=== PATIENT | male | born 1960 | race African-American/Black ===

== ENCOUNTER 2017-10-31 09:48 | Inpatient (IN) | payer BC ==
[~2017-10-31] VITALS: Ht 188 cm; Wt 129.3 kg
[2017-10-31 09:51] VITALS: BP 198/118
--- NOTE | 2017-10-31 09:58 | NUR ---
PATIENT TO BED 10 AT THIS TIME.
--- NOTE | 2017-10-31 10:00 | NUR ---
57/M BIB C/O COUGH & SOB X1WK.DENIES N/V/D AT THIS TIME; SKIN IS PINK/WARM/DRY; AAOX4 WITH EVEN AND STEADY GAIT; LUNGS CLEAR BL; PATIENT STATES PAIN OF 0/10 AT THIS TIME; PATIENT POSITIONED FOR COMFORT; HOB ELEVATED; BEDRAILS UP X2; BED DOWN. KATHERINE BARRERA MADE AWARE OF PT STATUS. Addendum: [facility]17 [facility] at this [facility].
--- NOTE | 2017-10-31 10:06 | NUR ---
Patient being evaluated by DR BARRETT at bedside.
[2017-10-31] MEDS ORDERED: DEXAMETHASONE 10 MG/ML VIAL IVP ONE (10:10)
[2017-10-31] MEDS ORDERED: IPRATROPIUM 0.02% 0.5 MG/2.5 ML NEBU INH ONE (10:10)
[2017-10-31] MEDS ORDERED: ALBUTEROL 0.083% 2.5 MG/3 ML NEBU INH ONE (10:10)
[2017-10-31] MEDS ORDERED: cloNIDine 0.1 MG TAB PO ONE (10:10)
[2017-10-31 10:36] LABS: BASOPHILS # (AUTO) 0.1 K/uL (0.00-0.22); BASOPHILS % (AUTO) 4.1 % (0.0-2.0); EOSINOPHILS # (AUTO) 0.1 K/uL (0-0.4); EOSINOPHILS % (AUTO) 2.3 % (0.0-4.0); HEMATOCRIT 44.6 % (36-52); HEMOGLOBIN 14.4 g/dL (12.0-18.0); LYMPHOCYTES # (AUTO) 1.6 K/uL (2.0-11.5); LYMPHOCYTES % (AUTO) 45.9 % (20.5-51.1); MEAN CORPUSCULAR HEMOGLOBIN 26 pg (27-31); MEAN CORPUSCULAR HGB CONC 32 g/dL (33-37); MEAN CORPUSCULAR VOLUME 81 fL (80-94); MONOCYTES # (AUTO) 0.5 K/uL (0.8-1.0); MONOCYTES % (AUTO) 13.2 % (1.7-9.3); NEUTROPHILS # (AUTO) 1.2 K/uL (1.8-7.7); NEUTROPHILS % (AUTO) 34.5 % (42.2-75.2); PLATELET COUNT (AUTO) 169 K/uL (140-450); RED BLOOD CELL COUNT(AUTO) 5.49 MIL/uL (4.20-6.10); RED CELL DISTRIBUTION WIDTH 12.5 % (11.6-13.7)
[2017-10-31 10:49] LABS: ANION GAP 12.8 (8-16); CARBON DIOXIDE 27.1 mmol/L (21-32); CREATININE 1.3 mg/dL (0.7-1.3); POTASSIUM 3.9 mmol/L (3.5-5.1)
[2017-10-31 10:51] LABS: ALBUMIN 3.6 g/dL (3.4-5.0); TOTAL BILIRUBIN 0.6 mg/dL (0.0-1.0)
[2017-10-31 10:53] LABS: WHITE BLOOD COUNT (AUTO) 3.6 K/uL (4.8-10.8)
[2017-10-31] MEDS ORDERED: NITROGLYCERIN 2% 1 GM PKT TP ONE (11:15)
[2017-10-31] MEDS ORDERED: ASPIRIN 325 MG TAB PO ONE (11:15)
--- NOTE | 2017-10-31 11:21 | NUR ---
Patient being reevaluated by DR BARRETT at bedside.
[2017-10-31] MEDS: NACL 0.9% 1,000 ML IV SCH (11:28)
[2017-10-31] MEDS ORDERED: LISI10TA11 PO (11:30)
[2017-10-31] MEDS ORDERED: ASPI-1129 PO (11:30)
[2017-10-31] MEDS ORDERED: CARER90 PO (11:30)
[2017-10-31] MEDS ORDERED: LORazepam 0.5 MG TAB PO PRN (11:30)
[2017-10-31] MEDS ORDERED: ZOLPIDEM 5 MG TAB PO PRN (11:30)
[2017-10-31] MEDS ORDERED: CHLO25TA33 PO (11:30)
[2017-10-31] MEDS ORDERED: MORPHINE SULFATE 2 MG/ML SYR IVP PRN (11:30)
[2017-10-31] MEDS ORDERED: DOCUSATE SODIUM 100 MG GELCAP PO PRN (11:30)
[2017-10-31] MEDS ORDERED: ONDANSETRON 4 MG/2 ML VIAL IM/IVP PRN (11:30)
[2017-10-31] MEDS ORDERED: HYDROcodone/APAP 7.5/325 MG 1 TAB PO PRN (11:30)
[2017-10-31] MEDS ORDERED: ACETAMINOPHEN 325 MG TAB PO PRN (11:30)
[2017-10-31 12:16] LABS: FREE T4 (FREE THYROXINE) 1.32 ng/dL (0.76-1.46); PHOSPHORUS 2.6 mg/dL (2.5-4.9); THYROID STIMULATING HORMONE 0.48 uIU/mL (0.34-3.74)
[2017-10-31 12:17] LABS: MAGNESIUM 2.3 mg/dL (1.8-2.4)
[2017-10-31 12:20] VITALS: BP 157/99
--- NOTE | 2017-10-31 12:20 | NUR ---
RECEIVED PATIENT REPORT AT BEDSIDE FROM CELINA MATUTE. PATIENT IS AAOX4 AND SHOWS NO S/S OF ACUTE DISTRESS ON O2 @ 2L VIA NC. ON TELE MONITOR. IV NOTED ON THE LEFT HAND, PATENT AND INTACT. SKIN IS INTACT, DENIES PAIN. PATIENT WAS EXPLAINED TO USE THE CALL LIGHT FOR ASSISTANCE, HOSPITAL ENVIRONMENT, AND POC. PATIENT SAFETY PRECAUTIONS ARE IN PLACE. BED IN LOW POSITION WITH CALL LIGHT WITHIN REACH.
--- NOTE | 2017-10-31 12:23 | NUR ---
Patient will be admitted to care of DR SOTO . Admited to TELE. Will go to room. Belongings list completed. Report to .
[2017-10-31] MEDS ORDERED: ISOSORBIDE DINITRATE 10 MG TAB PO SCH (12:24)
[2017-10-31] MEDS ORDERED: LABETALOL 100 MG/20 ML VIAL IV SCH (12:24)
[2017-10-31] MEDS ORDERED: DILT-135 PO (12:27)
[2017-10-31] MEDS ORDERED: LISI-420 PO (12:27)
[2017-10-31 12:30] LABS: CHOL/HDL RATIO 5.7 (1-4.5)
--- NOTE | 2017-10-31 12:30 | NUR ---
PATIENT BP IS 157/99, PATIENT HAS SCHEDULED LABETALOL 5 MG IVP, LISINOPRIL 20 MG PO, AND ISORDIL 10 MG PO, WILL NOTIFY DR OH IF HE WOULD LIKE TO CONTINUE TO GIVE BP MEDICATIONS.
[2017-10-31 12:52] LABS: APPEARANCE,URINE HAZY (CLEAR); BILIRUBIN,URINE 1+ (NEGATIVE); BLOOD, URINE TRACE-L (NEGATIVE); COLOR,URINE RED (YELLOW); LEUKOCYTE ESTERASE ,URINE NEGATIVE (NEGATIVE); NITRITE, URINE NEGATIVE (NEGATIVE); PH,URINE 6.5 (5.0-9.0); UGLUCOSE NEGATIVE (NEGATIVE)
[2017-10-31] MEDS ORDERED: LISINOPRIL 20 MG TAB PO SCH (12:56)
[2017-10-31 13:29] LABS: BARBITURATE, URINE NEGATIVE ng/ml (NEG <=200); BENZODIAZEPINE, URINE NEGATIVE ng/mL (NEG <=200); CANNABINOID, URINE NEGATIVE ng/mL (NEG <=50); COCAINE, URINE NEGATIVE ng/mL (NEG <=300); OPIATE, URINE NEGATIVE ng/mL (NEG <=2000); PHENCYCLIDINE SCREEN,URINE NEGATIVE ng/mL (NEG <=25)
--- NOTE | 2017-10-31 13:30 | NUR ---
PATIENT BP IS 149/90 DR LOFTON NOTIFIED IF HE WOULD LIKE TO GIVE BP MEDICATIONS, DR TO CHANGE ORDERS.
[2017-10-31 13:39] VITALS: BP 149/90
[2017-10-31 13:42] LABS: RBC,URINE 0-5 (RARE) /HPF (0-5); WBC,URINE 0-5 (RARE) /HPF (0-5)
[2017-10-31 16:00] VITALS: BP 138/77
--- NOTE | 2017-10-31 16:00 | NUR ---
PATIENT IS SITTING IN BED WATCHING TV AND SHOWS NO S/S OF ACUTE DISTRESS ON O2 @ 2L VIA NC. PATIENT DENIES PAIN AT THIS TIME. BED IN LOW POSITION WITH CALL LIGHT WITHIN REACH.
[2017-10-31 17:18] VITALS: BP 157/99
--- NOTE | 2017-10-31 19:00 | NUR ---
PATIENT REPORT GIVEN AT BEDSIDE TO NIGHT NURSE. PATIENT ENDORSED IN STABLE CONDITION.
--- NOTE | 2017-10-31 19:01 | NUR ---
RECEIVED BEDSIDE REPORT FROM DAY SHIFT NURSE DANIELLA RN, PT STABLE, NO DISTRESS NOTED, REPORTED HAVING NO PAIN AT THIS MOMENT, IV TO L HAND 20G RUNNING NS @ 50ML/HR INFUSING WELL, PT ON 2L O2 VIA NC, NO SOB, INITIAL ASSESSMENT DONE, ALL SAFETY PRECAUTION MET, WILL CONTINUE TO MONITOR.
--- NOTE | 2017-10-31 20:10 | NUR ---
PT TALKED TO DR. KNOWLES REGARDING PLAN OF CARE, PT STATED UNDERSTANDING, LEFT RESTING, NO DISTRESS NOTED, CALL LIGHT WITHIN REACH, WILL CONTINUE TO MONITOR.
[2017-10-31 20:21] VITALS: BP 152/92
--- NOTE | 2017-10-31 23:40 | NUR ---
CHECKED ON PT, PT STABLE, NO DISTRESS NOTED, NO SOB, STATED HAVING NO PAIN, CALL LIGHT WITHIN REACH, WILL CONTINUE TO MONITOR.
[2017-11-01] VITALS: BP 142/81
--- NOTE | 2017-11-01 01:44 | NUR ---
CHECKED ON PT. PT SLEEPING, NO DISTRESS NOTED, STABLE, CALL LIGHT WITHIN REACH, WILL CONTINUE TO MONITOR.
[2017-11-01] MEDS: NACL 0.9% 1,000 ML IV SCH (02:37)
[2017-11-01 04:00] VITALS: BP 143/76
--- NOTE | 2017-11-01 04:10 | NUR ---
CHECKED ON PT, PT SLEEPING, EASY TO AROUSE, NO DISTRESS NOTED, NO SOB, REPORTED HAVING NO PAIN, CALL LIGHT WITHIN REACH, WILL CONTINUE TO MONITOR.
[2017-11-01 06:43] LABS: BASOPHILS # (AUTO) 0.1 K/uL (0.00-0.22); BASOPHILS % (AUTO) 1.4 % (0.0-2.0); HEMATOCRIT 43.8 % (36-52); HEMOGLOBIN 14.1 g/dL (12.0-18.0); LYMPHOCYTES # (AUTO) 1.1 K/uL (2.0-11.5); LYMPHOCYTES % (AUTO) 16.1 % (20.5-51.1); MEAN CORPUSCULAR HEMOGLOBIN 26 pg (27-31); MEAN CORPUSCULAR HGB CONC 32 g/dL (33-37); MEAN CORPUSCULAR VOLUME 81 fL (80-94); MONOCYTES # (AUTO) 0.6 K/uL (0.8-1.0); MONOCYTES % (AUTO) 8.5 % (1.7-9.3); PLATELET COUNT (AUTO) 191 K/uL (140-450); RED BLOOD CELL COUNT(AUTO) 5.39 MIL/uL (4.20-6.10); RED CELL DISTRIBUTION WIDTH 12.5 % (11.6-13.7); WHITE BLOOD COUNT (AUTO) 6.8 K/uL (4.8-10.8)
--- NOTE | 2017-11-01 07:20 | NUR ---
BEDSIDE REPORT GIVEN TO DAY SHIFT NURSE MARGARITA MATUTE, ENDORSED PLAN OF CARE, PT STABLE, NO DISTRESS NOTED, CALL LIGHT WITHIN REACH.
--- NOTE | 2017-11-01 07:25 | NUR ---
RECEIVED REPORT FROM RECREATION CLERK NURSE, PT IS AAOX4, AMBULATORY, IT IS ON ROOM AIR AT THIS TIME, NO S/S OF RESPIRATORY DISTRESS OR DISCOMFORT NOTED, SKIN IS INTACT, DISCUSSED PLAN OF CARE WITH PT, PT VERBALIZED UNDERSTANDING, SAFETY/FALL PRECAUTIONS ARE IN PLACE, CALL LIGHT IS WITHIN REACH, WILL CONTINUE TO MONITOR.
[2017-11-01 07:40] LABS: ANION GAP 13.7 (8-16); CARBON DIOXIDE 27.9 mmol/L (21-32); CREATININE 1.4 mg/dL (0.7-1.3); POTASSIUM 4.6 mmol/L (3.5-5.1)
[2017-11-01 08:00] VITALS: BP 162/96
--- NOTE | 2017-11-01 08:33 | NUR ---
DUE MEDICATION GIVEN, PT TOLERATED WELL, CALL LIGHT WITHIN REACH.
[2017-11-01] MEDS ORDERED: ECOTRIN 81 MG TABEC PO SCH (09:00)
[2017-11-01] MEDS ORDERED: NON-FORMULARY ITEM (Chlorthalidone 25 MG) PO SCH (09:00)
[2017-11-01] MEDS ORDERED: CHLORTHALIDONE 50 MG TAB PO SCH (09:00)
[2017-11-01] MEDS ORDERED: DILTIAZEM 120 MG CAPER PO SCH (09:00)
[2017-11-01] MEDS ORDERED: LISINOPRIL 20 MG TAB PO SCH ×2 (09:00)
[2017-11-01] MEDS ORDERED: HYDROCHLOROTHIAZIDE 25 MG TAB PO SCH (09:00)
--- NOTE | 2017-11-01 09:03 | NUR ---
PATIENT HAS BEEN SCREENED AND CATEGORIZED MODERATE NUTRITION RISK. PATIENT WILL BE SEEN WITHIN 3-5 DAYS OF ADMISSION. 11/02/17-11/04/[address]
[2017-11-01] MEDS ORDERED: LEVOFLOXACIN 750 MG/D5W PREMIX 150 ML IV SCH (10:52)
--- NOTE | 2017-11-01 11:00 | NUR ---
PT RESTING IN BED, WATCHING TV, NO S/S OF RESPIRATORY DISTRESS OR DISCOMFORT NOTED, CALL LIGHT WITHIN REACH.
[2017-11-01] MEDS ORDERED: ATOR40TA PO (11:37)
[2017-11-01] MEDS ORDERED: SACC250C1 PO (11:37)
[2017-11-01] MEDS ORDERED: LEVO750T2 PO (11:37)
[2017-11-01] MEDS ORDERED: LISI40TA4 PO (11:37)
[2017-11-01 12:00] VITALS: BP 164/85
--- NOTE | 2017-11-01 12:04 | NUR ---
[facility] RECEIVED CALL FROM [facility] PH# [phone] EXT [phone] REQUESTING FOR REVIEW TO BE SENT TO FAX# [phone], REF# [id number]. INITIAL REVIEW FAXED TO [facility] [phone] ATTN: [facility] PH# [phone] EXT [id number], REF# [id number].
[2017-11-01] MEDS ORDERED: CHLO25TA33 PO (12:54)
--- NOTE | 2017-11-01 13:00 | NUR ---
PT RESTING IN BED, FAMILY MEMBER IS AT PT BEDSIDE, CALL LIGHT IS WITHIN REACH.
[2017-11-01] MEDS ORDERED: ALBU0.0912 INH (13:28)
[2017-11-01] MEDS ORDERED: LABETALOL 100 MG/20 ML VIAL IV SCH (13:30)
[2017-11-01] MEDS ORDERED: ISOSORBIDE DINITRATE 10 MG TAB PO SCH (13:30)
[2017-11-01 14:17] VITALS: BP 152/79
--- NOTE | 2017-11-01 15:00 | NUR ---
DISCHARGE INSTRUCTION GIVEN, IV REMOVED, CATHETER TIP INTACT, ID WRIST BAND REMOVED. PT STABLE UPON DISCHARGE ACCOMPANIED BY FAMILY MEMBER.
== END 2017-11-01 15:00 | disposition home or self-care (01) | DRG 189 ==
LOC: MED 09:48 → MTU 11:28
PROVIDERS: ADMIT Family Medicine Sports Medicine; ATTEND Family Medicine Sports Medicine
DX: J96.00 Acute respiratory failure, unspecified whether with hypoxia or hypercapnia (principal); N17.0 Acute kidney failure with tubular necrosis; I21.4 Non-ST elevation (NSTEMI) myocardial infarction; I50.43 Acute on chronic combined systolic (congestive) and diastolic (congestive) heart failure; J18.9 Pneumonia, unspecified organism; I48.91 Unspecified atrial fibrillation; I21.A1 Myocardial infarction type 2; I51.7 Cardiomegaly; I10 Essential (primary) hypertension; E78.5 Hyperlipidemia, unspecified; E66.01 Morbid (severe) obesity due to excess calories; Z68.36 Body mass index [BMI] 36.0-36.9, adult; Z60.2 Problems related to living alone; E11.65 Type 2 diabetes mellitus with hyperglycemia
CPT/HCPCS: 36415; 71045; 80048; 80053; 80305; 81001; 82150; 83036; 83690; 83735; 83880; 84100; 84436; 84439; 84443; 84479; 84484; 85025; 85610; 85730; 87086; 93005; 94640; 96374; 99285; J1100; J3490; J7030; J7613; J7644; Q0092